=== PATIENT | male | born 1985 | race Caucasian/White ===

== ENCOUNTER 2016-12-01 23:11 | Emergency (ER) | payer SELFPAY ==
[2016-12-01 23:20] VITALS: BMI 23.5
--- NOTE | 2016-12-01 23:51 | PDOC ---
History of Present Illness - General History Source: Patient Exam Limitations: No Limitations - History of Present Illness Initial Comments: 12/02/16 00:04 The patient is a 31 year old male with no significant past medical history, who presents to the ER with multiple episodes of nausea and vomiting since this morning. Patient states he ordered soup from a restaurant last night and had multiple episodes of vomiting this morning. Patient says he had one episode of bloody vomiting. Patient says he has a decreased PO intake secondary to the vomiting, and only ate soup today that his prepared. Patient admits that he feels slightly flatulent. He says he has associated chills and dizziness. Patient admits he last drank beer last night. 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 Patient states he drinks on occasion. <Kathleen Shay - Last Filed: 12/02/16 00:04> <Libertad Coppola - Last Filed: 12/02/16 01:13> - General Chief Complaint: Pain Stated Complaint: VOMITTING,FEVER, DIZZY Time Seen by Provider: 12/01/16 23:29 Past History <Kathleen Shay - Last Filed: 12/02/16 00:04> - Past Medical History Other medical history: Pt denies - Psycho/Social/Smoking Cessation Hx Suicidal Ideation: No Smoking History: Never smoked Information on smoking cessation initiated: No Hx Alcohol Use: No Drug/Substance Use Hx: No Substance Use Type: None <Libertad Coppola - Last Filed: 12/02/16 01:13> - Past Medical History Allergies/Adverse Reactions: Allergies Allergy/AdvReac Type Severity Reaction Status Date / Time No Known Allergies Allergy Verified 12/01/16 23:52 Home Medications: Ambulatory Orders NK [No Known Home Medication] 12/01/16 Review of Systems - Review of Systems Able to Perform ROS?: Yes Comments:: 12/02/16 00:05 CONSTITUTIONAL: Present: (+) chills Absent: fever, no fatigue EYES: Absent: visual changes ENT: Absent: ear pain, no sore throat CARDIOVASCULAR: Absent: chest pain, no palpitations RESPIRATORY: Absent: cough, no SOB GI: Present: (+) nausea, vomiting, hematemesis Absent: abdominal pain, no constipation, no diarrhea GENITOURINARY: Absent: dysuria, no frequency, no hematuria MUSCULOSKELETAL: Absent: back pain, no arthralgia, no myalgia SKIN: Absent: rash NEURO: Present: (+) dizziness Absent: headache <Kathleen Shay - Last Filed: 12/02/16 00:04> *Physical Exam - Vital Signs Last Vital Signs Temp Pulse Resp BP Pulse Ox 98.2 F 73 18 115/75 98 12/01/16 23:17 12/01/16 23:17 12/01/16 23:17 12/01/16 23:17 12/01/16 23:17 - Physical Exam Comments: 12/02/16 00:06 GENERAL: Well-appearing, well-nourished. No apparent distress. HEENT: Normocephalic, atraumatic. PERRL, EOM intact. CARDIOVASCULAR: Normal S1, S2. Regular rate and rhythm. PULMONARY: Clear to auscultation bilaterally. ABDOMEN: Soft, non-distended, non-tender. EXTREMITIES: Normal ROM in all four extremities. No gross deformities. SKIN: Warm, dry. No rash NEUROLOGICAL: No focal neurological deficits. <Kathleen Shay - Last Filed: 12/02/16 00:04> - Vital Signs Last Vital Signs Temp Pulse Resp BP Pulse Ox 98.2 F 73 18 115/75 98 12/01/16 23:17 12/01/16 23:17 12/01/16 23:17 12/01/16 23:17 12/01/16 23:17 <Libertad Coppola - Last Filed: 12/02/16 01:13> ED Treatment Course - LABORATORY CBC & Chemistry Diagram: 12/02/16 00:05 12/02/16 00:05 <Libertad Coppola - Last Filed: 12/02/16 01:13> Medical Decision Making - Medical Decision Making 12/02/16 00:09 Pt comes with vomiting all day since he awoke in the AM. He has no diarrhea, no fever, no abd pain. Some flatulence. He had soup today. He drinks beer. He smells of beer and sweat. Pt states he vomited some blood and is nervous. But no blood in the stool, and no blood for the rest of the day that he was vomiting. He appears well, no fever no sweats, no abd or flank pain and rest of exam is normal. 12/02/16 01:13 Pt's labs are normal. He feels better with hydration. Home with PMD follow up as needed. <Libertad Coppola - Last Filed: 12/02/16 01:13> *DC/Admit/Observation/Transfer - Attestations Scribe Attestion: 12/02/16 00:06 Documentation prepared by Kathleen Shay, acting as director medical economics for Libertad Coppola MD. <Kathleen Shay - Last Filed: 12/02/16 00:04> - Discharge Dispostion Admit: No <Libertad Coppola - Last Filed: 12/02/16 01:13> Diagnosis at time of Disposition: Vomiting, Gastroenteritis - Discharge Dispostion Condition at time of disposition: Stable - Patient Instructions Printed Discharge Instructions: Viral Gastroenteritis
[2016-12-01] MEDS ORDERED: METOCLOPRAMIDE HCL INJECTION 10 MG/2 ML VIAL IVPB ONE (23:53)
[2016-12-01] MEDS ORDERED: SODIUM CHLORIDE 0.9% 500 ML INFUS.BAG IV ONE (23:53)
[2016-12-01] MEDS ORDERED: FAMOTIDINE 20 MG/50 ML IVPB 50 ML IVPB ONE (23:53)
[2016-12-02] MEDS ORDERED: METOCLOPRAMIDE HCL INJECTION 10 MG/2 ML VIAL ONE (00:12)
[2016-12-02] MEDS ORDERED: FAMOTIDINE 20 MG/50 ML IVPB 50 ML IVPB ONE (00:12)
[2016-12-02 00:18] LABS: BASOPHIL 0.6 % (0-2.0); EOSINOPHIL 3.3 % (0-4.5); MCH 30.1 pg (25.7-33.7); MCHC 33.4 g/dl (32.0-35.9); MEAN CELL VOLUME 90.2 fl (80-96); MEAN PLT VOLUME 7.7 fl (7.5-11.1); NEUTROPHILS 60.6 % (42.8-82.8); PLATELET COUNT 209 K/MM3 (134-434); RDW 12.9 % (11.9-15.9); WHITE BLOOD COUNT 6.4 K/mm3 (4.0-10.0)
[2016-12-02 00:46] VITALS: BP 120/78; PULSE 74; TEMP 98.3
[2016-12-02] MEDS ORDERED: POTASSIUM CHLORIDE TABS 20 MEQ TABLET.ER (FP) PO ONE ×2 (00:51→00:54)
[2016-12-02 00:59] LABS: ALBUMIN 3.8 g/dl (3.4-5.0); AMYLASE 45 U/L (25-115); ANION GAP 11 (8-16); CALCIUM 9.1 mg/dL (8.5-10.1); CO2 27 mmol/L (21-32); COCKROFT - GAULT 114.44; CREATININE 0.9 mg/dL (0.7-1.3); GLUCOSE,RANDOM 101 mg/dL (74-106); SGOT/AST 16 U/L (15-37); SGPT/ALT 26 U/L (12-78)
[2016-12-02 01:01] LABS: ALK PHOS 76 U/L (45-117); BILIRUBIN,TOTAL 0.6 mg/dL (0.2-1.0); TOT PROT 6.8 g/dl (6.4-8.2)
== END 2016-12-02 01:02 | disposition home or self-care (01) ==
LOC: JER 23:11
PROC: 3E033GC Introduction of Other Therapeutic Substance into Peripheral Vein, Percutaneous Approach (ICD-10-PCS; principal; 2016-12-01)
DX: K52.9 Noninfective gastroenteritis and colitis, unspecified (principal)
CPT/HCPCS: 36415; 80053; 82150; 83690; 85025; 99282-25